=== PATIENT | male | born 1975 | race Caucasian/White ===

== ENCOUNTER 2020-03-06 11:29 | Outpatient (CLI) | payer OTHER ==
--- NOTE | 2020-03-06 12:53 | RAD ---
EXAM: 3 views cervical spine PROVIDED CLINICAL HISTORY: Radiculopathy COMPARISON: None FINDINGS: Cervical alignment appears normal. No evidence for abnormal translational motion with flexion or exte nsion. Vertebral body heights and intervertebral disc space heights appear preserved. No prevertebral soft tissue swelling apparent. IMPRESSION: As above.
--- NOTE | 2020-03-06 12:54 | RAD ---
EXAM: XR Lumbar Spine 2 Or 3 View PROVIDED CLINICAL HISTORY: Lumbar radiculopathy COMPARISON: None FINDINGS: 5 nonrib-bearing lumbar-type vertebral bodies are demonstrated. Lumbar alignment appears normal. Ther e is no evidence for abnormal translational motion with flexion and extension. Lower lumbar spine facet degenerative changes are seen. Endplate degenerative changes are seen at L2-3. IMPRESSION: As above.
--- NOTE | 2020-03-06 13:15 | MRI ---
EXAM: MRI Lumbar Spine WO Con PROVIDED CLINICAL HISTORY: Lumbar radiculopathy COMPARISON: None FINDINGS: 5 lumbar vertebral bodies are assumed. Lumbar alignment appears normal. Vertebral body heights appear preserved. No focal concerning regional marrow signal abnormality is evident. Conspicuous hemangioma formation is noted at L1 and L2. The conus medullaris is normal in signal and terminates a t an appropriate level. L1-L2: Mild broad-based disc bulge with superimposed left central disc protrusion. No significant central ca nal, subarticular or foraminal narrowing. L1-2-L3: Mild disc desiccation. Annular fissure involving the dorsal disc margin. No significant central canal or foraminal narrowing apparent. L3-L4: No significant central canal or foraminal narrowing apparent. L4-L5: No significant central canal or foraminal narrowing apparent. L5-S1: No significant central canal or foraminal narrowing apparent. IMPRESSION: Disc degenerative changes as described.
--- NOTE | 2020-03-06 13:42 | MRI ---
EXAM: MRI Cervical Spine WO Con PROVIDED CLINICAL HISTORY: Cervical radiculopathy COMPARISON: None FINDINGS: Evaluation is limited by patient motion. Cervical alignment appears normal. Vertebral body heights appear preserved. The visualized posterior fossa, cervicomedullary junction and cervical spinal cord appear normal. C2-3: No significant central canal or foraminal narrowing apparent. C3-4: No significant central canal or foraminal narrowing apparent. C4-5: No significant central canal or foraminal narrowing apparent. C5-6: No significant central canal or foraminal narrowing apparent. C6-7: No significant central canal or foraminal narrowing apparent. C7-T1: No significant central canal or foraminal narrowing apparent. IMPRESSION: No significant central canal or foraminal narrowing apparent with limitations due to patient motion.
== END 2020-03-06 11:30 | disposition home or self-care (01) ==
LOC: TBSIIMAG 11:29
PROVIDERS: ATTEND Neurological Surgery
DX: M47.26 Other spondylosis with radiculopathy, lumbar region (principal); M51.16 Intervertebral disc disorders with radiculopathy, lumbar region
CPT/HCPCS: 72040; 72100; 72141; 72148